=== PATIENT | male | born 1990 | race Caucasian/White ===

== ENCOUNTER 2024-08-22 15:37 | Emergency (ER) | payer SELFPAY ==
--- NOTE | 2024-08-22 17:11 | RAD REPORT ---
EXAMINATION: XR RIGHT SHOUDLER CLINICAL INDICATION: Male, 34 years old. PAIN RIGHT TECHNIQUE: Multiple views of the right shoulder were obtained. COMPARISON: No prior exam. FINDINGS: No significant bone or joint abnormality detected.
--- NOTE | 2024-08-22 17:23 | RAD REPORT ---
EXAMINATION: CT CERVICAL SPINE WITHOUT CONTRAST HISTORY: NUMBNESS/TINGLING COMPARISON: None TECHNIQUE: Multiple contiguous axial images were obtained in a CT of the cervical spine without IV co ntrast. Sagittal and coronal reformats were performed. One or more of the following dose reduction techniques were used: Automated exposure control, adjustment of the mA and kV according to patient si ze, and iterative reconstruction. Unless otherwise specified, incidental findings do not require dedicated imaging follow-up. FINDINGS: The vertebral bodies and intervertebral discs demonstrate normal height and alignment without fractu re or subluxation. No significant degenerative changes are present. No prevertebral soft tissue swelling is seen. The posterior facets are well aligned. Normal alignment of the skull base with the cervical spine is seen. The odontoid appears normal and the lateral masses are symmetric. The lung apices are unremarkable. IMPRESSION: No evidence of acute osseous abnormality of the cervical spine.
--- NOTE | 2024-08-22 17:44 | EDPHYS ---
Physician Documentation [facility] Name: Eber Dalal Age: 34 yrs Sex: Male : 1990 Arrival Date: 08/22/2024 Time: 15:37 Bed 20 Private MD: ED Physician Bharathi Morin HPI: 08/23 09:08 This 34 yrs old Male presents to ER via Ambulatory with complaints of Shoulder Pain. sb4 09:08 Patient reports right-sided shoulder pain for several months now, but states it is sb4 slowly getting worse. States he injured it when he was young but never had any surgical intervention nor has he had any follow-up since. Additionally, he states that he has been having intermittent numbness and tingling in his arms bilaterally. States that he has had some neck pain as well, but is unsure of an injury there. Historical: - Allergies: 08/22 16:57 No Known Allergies; iw - Home Meds: 16:57 None [Active]; iw - PMHx: 16:57 None; iw - Infectious Disease History:: Denies. - Social history:: Smoking status: . ROS: 08/23 09:08 Constitutional: Negative for fever, chills, and weight loss, sb4 MS/extremity: Positive for pain, of the right shoulder, Neuro: Positive for tingling, of the right arm and left arm, All other systems are negative, Exam: 09:08 Constitutional: This is a well developed, well nourished patient who is awake, alert, sb4 and in no acute distress. Head/Face: Normocephalic, atraumatic. Eyes: Extra-ocular motions intact. Periorbital areas with no swelling, redness, or edema. ENT: Mucous membranes moist. Respiratory: No increased work of breathing, no retractions or nasal flaring. Skin: Warm, dry with normal turgor. Normal color with no rashes, no lesions, and no evidence of cellulitis. 09:08 Musculoskeletal/extremity: Circulation is intact in all extremities. Pulses: are normal with no appreciated deficits, Sensation intact. Joints: the right shoulder displays limited range of motion, painful range of motion, Vital Signs: 08/22 16:00 BP 127 / 91; Pulse 87; Resp 16; Temp 97.8; Pulse Ox 98% on R/A; Pain 2/10; iw 16:00 Pain Scale: Adult iw MDM: 15:44 Medical Screening Exam initiated sb4 08/23 09:09 Data reviewed: vital signs, nurses notes, radiologic studies, and as a result, I will sb4 discharge patient. Counseling: I had a detailed discussion with the patient and/or guardian regarding the historical points, exam findings, and any diagnostic results supporting the discharge/admit diagnosis, radiology results, the need for outpatient follow up, a orthopedic surgeon, to return to the emergency department if symptoms worsen or persist or if there are any questions or concerns that arise at home. 08/22 16:07 Order name: C Spine W/O Contrast; Complete Time: 17:27 sb4 08/22 16:07 Order name: Shoulder Right (2 View) XRAY; Complete Time: 17:17 sb4 08/22 17:42 Order name: Shoulder Immobilizer sb4 Administered Medications: No medications were administered Disposition Summary: 08/22/24 17:43 Discharge Ordered Notes: Location: Home sb4 Problem: new sb4 Symptoms: are unchanged sb4 Condition: Stable sb4 Diagnosis - Radiculopathy, cervical region sb4 - Pain in right shoulder sb4 Followup: sb4 - With: Misael Temple MD - When: 1 week - Reason: Recheck today's complaints, Re-evaluation by your physician Discharge Instructions: - Discharge Summary Sheet sb4 - Pinched Nerve sb4 - Cervical Radiculopathy, [id number] sb4 Forms: - Work release form sb4 - Medication Reconciliation Form sb4 - Patient Portal Instructions sb4 - Leadership Thank You Letter sb4 Prescriptions: - Diclofenac Sodium 75 mg Oral Tablet Sustained Release - take 1 tablet ORAL route 2 times per day; 30 tablet; Refills: 0, Product sb4 Selection Permitted - Medrol (Arjun) 4 mg Oral Tablets, Dose Pack - take 1 tablet ORAL route as directed - follow package instructions; 1 packet; sb4 Refills: 0, Product Selection Permitted - methocarbamol 750 mg Oral tablet - take 1 tablet ORAL route 3 times per day; 15 tablet; Refills: 0, Product sb4 Selection Permitted Signatures: Dispatcher [employer] Bridget German RN RN iw Brown, Sophia, PA-C PA-C sb4
--- NOTE | 2024-08-22 17:44 | ER ---
Nurse's Notes [facility] Name: Eber Dalal Age: 34 yrs Sex: Male : 1990 Arrival Date: 08/22/2024 Time: 15:37 Bed 20 Private MD: Diagnosis: Radiculopathy, cervical region;Pain in right shoulder Presentation: 08/22 15:58 Chief complaint: Patient states: woke up this morning with right shoulder pain , also iw has neck pain and a headache. Coronavirus screen: At this time, the client does not indicate any symptoms associated with coronavirus-19. Ebola Screen: No symptoms or risks identified at this time. Initial Sepsis Screen: Does the patient meet any 2 criteria? No. Patient's initial sepsis screen is negative. Does the patient have a suspected source of infection? No. Patient's initial sepsis screen is negative. Risk Assessment: Do you want to hurt yourself or someone else? Patient reports no desire to harm self or others. 15:58 Method Of Arrival: Ambulatory iw 15:58 Acuity: JOHN 4 iw 16:55 Onset of symptoms was August 22, 2024. iw Triage Assessment: 16:55 General: Appears in no apparent distress. Behavior is calm, cooperative. Pain: iw Complains of pain in anterior aspect of right shoulder and posterior aspect of right shoulder. Historical: - Allergies: 16:57 No Known Allergies; iw - Home Meds: 16:57 None [Active]; iw - PMHx: 16:57 None; iw - Infectious Disease History:: Denies. - Social history:: Smoking status: . Screenin:[address] [facility] ED Fall Risk Assessment (Adult) History of falling in the last 3 months, kc6 including since admission No falls in past 3 months (0 pts) Confusion or Disorientation No (0 pts) Intoxicated or Sedated No (0 pts) Impaired Gait No (0 pts) Mobility Assist Device Used No (0 pt) Altered Elimination No (0 pt) Score/Fall Risk Level 0 - 2 = Low Risk Oriented to surroundings, Maintained a safe environment, Educated pt \T\ family on fall prevention, incl call for assistance when getting out of bed. Abuse screen: Denies threats or abuse. Denies injuries from another. Nutritional screening: No deficits noted. Tuberculosis screening: No symptoms or risk factors identified. Assessment: 17:01 General: Appears in no apparent distress. comfortable, well groomed, well developed, kc6 Behavior is calm, cooperative, appropriate for age. Pain: Complains of pain in right arm and anterior aspect of right shoulder. Neuro: Level of Consciousness is awake, alert, obeys commands, Oriented to person, place, time, situation, Appropriate for age. Cardiovascular: Capillary refill < 3 seconds. Respiratory: Airway is patent Trachea midline Respiratory effort is even, unlabored, Respiratory pattern is regular, symmetrical. GI: No signs and/or symptoms were reported involving the gastrointestinal system. : No signs and/or symptoms were reported regarding the genitourinary system. EENT: No signs and/or symptoms were reported regarding the EENT system. Derm: No signs and/or symptoms reported regarding the dermatologic system. Skin is intact, is healthy with good turgor, Skin is normal. Musculoskeletal: Range of motion: limited in right shoulder. 18:09 Reassessment: Patient appears in no apparent distress at this time. No changes from kc6 previously documented assessment. Patient and/or family updated on plan of care and expected duration. Pain level reassessed. Patient is alert, oriented x 3, equal unlabored respirations, skin warm/dry/pink. Vital Signs: 16:00 BP 127 / 91; Pulse 87; Resp 16; Temp 97.8; Pulse Ox 98% on R/A; Pain 2/10; iw 16:00 Pain Scale: Adult iw ED Course: 15:39 Patient arrived in ED. mr 15:44 Lourdes Hutchins PA-C [facility]. sb4 15:44 Bharathi Morin MD is Attending Physician. sb4 15:59 Triage completed. iw 16:53 Sallie Sandy, RN is Primary Nurse. kc6 16:53 Arm band placed on. iw 17:01 Patient has correct armband on for positive identification. Bed in low position. Call kc6 light in reach. Side rails up X 1. Adult w/ patient. Pulse ox on. NIBP on. Door closed. Noise minimized. Lights dimmed. Pillow given. Verbal reassurance given. 17:05 Shoulder Right (2 View) XRAY In Process Unspecified. EDMS 17:07 Patient maintains SpO2 saturation greater than 95% on room air. kc6 17:16 C Spine W/O Contrast In Process Unspecified. EDMS 17:43 Misael Temple MD is Referral Physician. sb4 18:07 Clavicle/Shoulder strap applied on right clavicle/shoulder. kc6 18:08 No provider procedures requiring assistance completed. Patient did not have IV access kc6 during this emergency room visit. Administered Medications: No medications were administered Medication: 18:09 VIS not applicable for this client. kc6 Outcome: 17:43 Discharge ordered by MD. sb4 18:09 Discharged to home ambulatory, with significant other, kc6 18:09 Condition: good 18:09 Discharge instructions given to patient, significant other, Instructed on discharge instructions, follow up and referral plans. no drinking with medication, no driving heavy equipment, medication usage, Demonstrated understanding of instructions, follow-up care, medications, Prescriptions given X 3, 18:09 Patient left the ED. kc6 Signatures: Dispatcher [employer] EDRI NorrisAleida skelton, Reg Reg mr Bridget Castro, Sallie Pryor RN, RN RN kc6 Lourdes Hutchins, PA-C PA-C sb4
[2024-08-22 18:14] VITALS: BP 127/91; TEMP 97.8; O2SAT 98
== END 2024-08-22 18:09 | disposition home or self-care (01) ==
LOC: ER 15:37
DX: M54.12 Radiculopathy, cervical region (principal)
CPT/HCPCS: 72125; 99283

== ENCOUNTER 2024-09-17 18:04 | Emergency (ER) | payer SELFPAY ==
--- NOTE | 2024-09-17 20:00 | RAD REPORT ---
EXAMINATION: XR RIGHT SHOUDLER CLINICAL INDICATION: Male, 34 years old. PAIN RIGHT TECHNIQUE: Multiple views of the right shoulder were obtained. COMPARISON: No prior exam. FINDINGS: Mild AC joint and glenohumeral joint arthritic changes. No acute fracture or dislocation.
[2024-09-17] MEDS ORDERED: KETOROLAC 30 MG/ML INJ ONE (20:57)
[2024-09-17] MEDS ORDERED: dexAMETHasone 10 MG/ML VIAL ONE (20:57)
--- NOTE | 2024-09-17 21:45 | ER ---
Nurse's Notes [facility] Name: Eber Dalal Age: 34 yrs Sex: Male : 1990 Arrival Date: 09/17/2024 Time: 18:04 Bed DIS2 Private MD: Diagnosis: Cervicalgia;Pain in right shoulder Presentation: 09/17 19:29 Chief complaint: Patient states: RIGHT SHOULDER PAIN FOR OVER A YEAR . WAS HERE A MONTH ha1 AGO . NEED PRESCRIPTIONS. Coronavirus screen: Client denies travel out of the [place] in the last 14 days. Ebola Screen: No symptoms or risks identified at this time. Initial Sepsis Screen: Does the patient meet any 2 criteria? No. Patient's initial sepsis screen is negative. Does the patient have a suspected source of infection? No. Patient's initial sepsis screen is negative. Risk Assessment: Do you want to hurt yourself or someone else? Patient reports no desire to harm self or others. Onset of symptoms was September 17, 2024. 19:29 Method Of Arrival: Ambulatory ha1 19:29 Acuity: JOHN 5 ha1 Triage Assessment: 19:31 General: Appears comfortable, Behavior is calm, cooperative. Pain: Complains of pain in ha1 RIGHT SHOULDER Pain currently is 2 out of 10 on a pain scale. Neuro: Level of Consciousness is awake, alert, obeys commands, Oriented to person, place, time, situation. Cardiovascular: Capillary refill < 3 seconds Patient's skin is warm and dry. Respiratory: Airway is patent Respiratory effort is even, unlabored, Respiratory pattern is regular, symmetrical. Historical: - Allergies: 19:31 No Known Allergies; ha1 - PMHx: 19:31 None; ha1 - Immunization history:: Adult Immunizations up to date. - Infectious Disease History:: Denies. - Social history:: Smoking status: Patient denies any tobacco usage or history of. Screenin:53 [facility] ED Fall Risk Assessment (Adult) History of falling in the last 3 months, kl including since admission No falls in past 3 months (0 pts) Confusion or Disorientation No (0 pts) Intoxicated or Sedated No (0 pts) Impaired Gait No (0 pts) Mobility Assist Device Used No (0 pt) Altered Elimination No (0 pt) Score/Fall Risk Level 0 - 2 = Low Risk Oriented to surroundings, Maintained a safe environment. Abuse screen: Denies threats or abuse. Nutritional screening: No deficits noted. Tuberculosis screening: No symptoms or risk factors identified. Assessment: 21:53 Reassessment: Patient appears in no apparent distress at this time. Patient states kl feeling better. Patient states symptoms have improved. Vital Signs: 19:29 BP 125 / 86; Pulse 100; Resp 18 S; Temp 97.9(O); Pulse Ox 99% on R/A; Weight 113.4 kg; ha1 Height 5 ft. 9 in. ; Pain 2/10; 19:29 Body Mass Index 36.92 (113.40 kg, 175.26 cm) ha1 19:29 Pain Scale: Adult ha1 ED Course: 18:41 Patient arrived in ED. cj3 19:20 Freddy Day MD is Attending Physician. betzaida 19:20 Freddy Riley PA is PHCP. cp 19:31 Triage completed. ha1 19:47 Shoulder Right (2 View) XRAY In Process Unspecified. EDMS 21:44 Steven Harmon MD is Referral Physician. cp 21:53 Patient has correct armband on for positive identification. kl 21:53 No provider procedures requiring assistance completed. Patient did not have IV access kl during this emergency room visit. Administered Medications: 20:28 CANCELLED (Physician Discretion): [id number] mg PO once cp 21:08 Drug: Dexamethasone IM 10 mg IM once Route: IM; Site: left deltoid; ha1 21:53 Follow up: Response: No adverse reaction; Marked relief of symptoms kl 21:08 Drug: Ketorolac IM 30 mg IM once Route: IM; Site: right deltoid; ha1 21:53 Follow up: Response: No adverse reaction; Marked relief of symptoms kl Outcome: 21:45 Discharge ordered by . cp 21:54 Discharged to home ambulatory, kl 21:54 Condition: improved 21:54 Discharge instructions given to patient, Instructed on discharge instructions, follow up and referral plans. medication usage, Demonstrated understanding of instructions, follow-up care, medications, Prescriptions given X 3, 21:54 Patient left the ED. kl Signatures: Dispatcher [employer] EDMS Berta Delgado RN RN kl Anderson, Corey, MD MD cha Page, Corey, PA PA cp Akila Baca RN RN [facility] Yolette Aparicio cj3 Corrections: (The following items were deleted from the chart) 19:32 19:31 PMHx: Unable to Obtain; ha1 ha1
--- NOTE | 2024-09-17 21:45 | EDPHYS ---
Physician Documentation [facility] Name: Eber Dalal Age: 34 yrs Sex: Male : 1990 Arrival Date: 09/17/2024 Time: 18:04 Bed DIS2 Private MD: ED Physician Freddy Day HPI: 09/17 19:30 This 34 yrs old Male presents to ER via Ambulatory with complaints of Shoulder Pain - cp RT. 19:30 Patient reports pain to right lateral neck and shoulder area for over 1 year. Patient cp returns to the emergency department requesting the same medications that he was prescribed here previously for this similar pain. Patient denies any new injuries. Patient denies follow-up for this pain. Patient denies any headache and/or back pain. Patient denies any numbness of arm and/or weakness. Historical: - Allergies: 19:31 No Known Allergies; ha1 - PMHx: 19:31 None; ha1 - Immunization history:: Adult Immunizations up to date. - Infectious Disease History:: Denies. - Social history:: Smoking status: Patient denies any tobacco usage or history of. ROS: 19:35 Constitutional: history per hpi cp Exam: 19:45 Head/Face: Normocephalic, atraumatic. cp 19:45 Constitutional: The patient appears in no acute distress, alert, awake, comfortable, non-toxic, well developed, well nourished, 19:45 Eyes: Periorbital structures: appear normal, Conjunctiva: normal, no exudate, no injection, Lids and lashes: appear normal, bilaterally, 19:45 ENT: External ear(s): are unremarkable, Nose: is normal, Mouth: Lips: moist, Oral mucosa: moist, Posterior pharynx: Airway: no evidence of obstruction, patent, 19:45 Neck: External neck: swelling, is not appreciated, mild tenderness to palpation right lateral lower neck, C-spine: vertebral tenderness, is not appreciated, crepitus, is not appreciated, ROM/movement: limited range of motion, is not appreciated, 19:45 Chest/axilla: Inspection: normal, Palpation: is normal, no crepitus, no tenderness, 19:45 Cardiovascular: Rate: normal, Rhythm: regular, Pulses: Pulses are 2+ in right radial artery. 19:45 Respiratory: the patient does not display signs of respiratory distress, Respirations: normal, no use of accessory muscles, no retractions, labored breathing, is not present, Breath sounds: are clear throughout, no decreased breath sounds, no stridor, no wheezing, 19:45 Back: pain, is absent, ROM is normal, 19:45 Musculoskeletal/extremity: Joints: the right shoulder displays no joint tenderness, no pain with passive ROM, full passive ROM, Vital Signs: 19:29 BP 125 / 86; Pulse 100; Resp 18 S; Temp 97.9(O); Pulse Ox 99% on R/A; Weight 113.4 kg; ha1 Height 5 ft. 9 in. ; Pain 2/10; 19:29 Body Mass Index 36.92 (113.40 kg, 175.26 cm) [facility] 19:29 Pain Scale: Adult ha1 MDM: 19:20 Medical Screening Exam initiated betzaida :45 Data reviewed: vital signs, nurses notes, and as a result, I will discharge patient. 21:45 Differential diagnosis: Anterior dislocation with fracture, Anterior dislocation cp without fracture, Posterior dislocation with fracture, Posterior dislocation without fracture, tendonitis, thoracic outlet syndrome. I considered the following discharge prescriptions or medication management in the emergency department Medications were administered in the Emergency Department. See MAR. Counseling: I had a detailed discussion with the patient and/or guardian regarding the historical points, exam findings, and any diagnostic results supporting the discharge/admit diagnosis, the need for outpatient follow up, for definitive care, a orthopedic surgeon, to return to the emergency department if symptoms worsen or persist or if there are any questions or concerns that arise at home. Response to treatment: the patient's symptoms have mildly improved after treatment, and as a result, I will discharge patient. 09/17 19:20 Order name: Shoulder Right (2 View) XRAY; Complete Time: 20: [facility] 09/18 19: Interpretation: Reviewed. 09/17 19: Order name: Ice pack [facility] Administered Medications: 20:28 CANCELLED (Physician Discretion): mg PO once :08 Drug: Dexamethasone IM 10 mg IM once Route: IM; Site: left deltoid; ha1 21:53 Follow up: Response: No adverse reaction; Marked relief of symptoms : Drug: Ketorolac IM 30 mg IM once Route: IM; Site: right deltoid; ha1 21:53 Follow up: Response: No adverse reaction; Marked relief of symptoms kl Disposition Summary: 09/17/24 21:45 Discharge Ordered Notes: Location: Home cp Problem: an ongoing problem cp Symptoms: have improved cp Condition: Stable cp Diagnosis - Cervicalgia cp - Pain in right shoulder cp Followup: cp - With: Steven Harmon MD - When: 1 week - Reason: Recheck today's complaints Discharge Instructions: - Discharge Summary Sheet cp - Shoulder Pain cp - Neurogenic Thoracic Outlet Syndrome cp - Shoulder Range of Motion Exercises cp - Neck Exercises cp Forms: - Medication Reconciliation Form cp - Antibiotic Education cp - Prescription Opioid Use cp - Patient Portal Instructions cp - Leadership Thank You Letter cp Prescriptions: - Diclofenac Sodium 75 mg Oral Tablet Sustained Release - take 1 tablet ORAL route 2 times per day; 30 tablet; Refills: 0, Product cp Selection Permitted - Medrol (Arjun) 4 mg Oral Tablets, Dose Pack - take 1 tablet ORAL route as directed - follow package instructions; 1 packet; cp Refills: 0, Product Selection Permitted - methocarbamol 750 mg Oral tablet - take 1 tablet ORAL route 3 times per day may cause drowsiness. do not take cp while driving, operating heavy machinary; 30 tablet; Refills: 0, Product Selection Permitted Addendum: 09/21/2024 01:26 Co-signature as Attending Physician, Freddy Day MD I agree with the assessment and c meehan plan of care. Signatures: Dispatcher [employer] Freddy Sparks MD MD cha Page, Corey, PA PA cp Akila Baca RN RN ha1 Berta Delgado RN Corrections: (The following items were deleted from the chart) 09/17 19:32 19:31 PMHx: Unable to Obtain; ha1 ha1 20:28 19:20 Ibuprofen PO 600 mg PO once ordered. betzaida cp 09/18 21:17 09/17 19:30 Patient reports pain to right lateral neck and shoulder area for over 1 cp year. cp
[2024-09-17 22:11] VITALS: BP 125/86; TEMP 97.9; O2SAT 99
== END 2024-09-17 21:54 | disposition home or self-care (01) ==
LOC: ER 18:04
DX: M54.2 Cervicalgia (principal); M25.511 Pain in right shoulder
CPT/HCPCS: 96372; 99284; J1100